=== PATIENT | female | born 1985 | race Caucasian/White ===

== ENCOUNTER 2018-08-11 10:00 | Day surgery (SDC) | payer OTHER ==
[~2018-08-11 10:00] MED LIST: MARCAINE 0.5% INFILTRATI ONE
[2018-08-11] MEDS ORDERED: LACTATED RINGERS 1,000 ML ONE (11:55)
[2018-08-11] MEDS ORDERED: LACTATED RINGERS 1,000 ML IV SCH (12:00)
[2018-08-11] MEDS ORDERED: DIPRIVAN 10 MG/ML IV ONE (12:14)
[2018-08-11] MEDS ORDERED: XYLOCAINE MPF 2% ONE (12:14)
[2018-08-11] MEDS ORDERED: ZEMURON IV ONE (12:14)
[2018-08-11] MEDS ORDERED: DILAUDID ONE (12:14)
[2018-08-11] MEDS ORDERED: VERSED ONE (12:28)
[2018-08-11] MEDS ORDERED: ROBINUL ONE ×2 (13:03→13:14)
[2018-08-11] MEDS ORDERED: BLOXIVERZ ONE ×2 (13:03→13:14)
[2018-08-11] MEDS ORDERED: NACL 0.9% IR ONE ×2 (13:20)
[2018-08-11] MEDS ORDERED: MARCAINE 0.5% INFILTRATI ONE (13:38)
[2018-08-11] MEDS ORDERED: ZOFRAN IV PRN (14:09)
[2018-08-11] MEDS ORDERED: DEMEROL IV PRN (14:09)
[2018-08-11] MEDS ORDERED: DILAUDID IV PRN (14:09)
[2018-08-11] MEDS ORDERED: PERCOCET 5/325 PO ONE (14:10)
--- NOTE | 2018-08-11 15:00 | Anesthesia Consultation ---
Anesthesia Consult and Med Hx Date of service: 08/11/18 - Airway Anesthetic Teeth Evaluation: Good ROM Head & Neck: Adequate Mental/Hyoid Distance: Adequate Mallampati Class: Class II Intubation Access Assessment: Probably Good - Pulmonary Exam CTA: Yes - Cardiac Exam Cardiac Exam: RRR - Pre-Operative Health Status ASA Pre-Surgery Classification: ASA2 Proposed Anesthetic Plan: General (GERD mild) - Pulmonary Hx Asthma: No COPD: No Hx Pneumonia: No - Cardiovascular System Hx Hypertension: No - Central Nervous System Hx Seizures: No Hx Psychiatric Problems: No - Endocrine Hx Renal Disease: No Hx End Stage Renal Disease: No Hx Hypothyroidism: No Hx Hyperthyroidism: No - Hematic Hx Anemia: No Hx Sickle Cell Disease: No - Other Systems Hx Alcohol Use: Yes Hx Cancer: No
--- NOTE | 2018-08-11 15:00 | Anesthesia Day of Surgery ---
Anesthesia Day of Surgery - Day of Surgery Patient Examined: Yes Patient H&P Reviewed: Yes Patient is NPO: Yes
[2018-08-11 15:46] VITALS: BP 113/63
--- NOTE | 2018-08-11 17:27 | Post Anesthesia Evaluation ---
- Post Anesthesia Evaluation Patient Participated: Yes Airway Patent: Yes Stable Respiratory Function: Yes Nausea/Vomiting: No Temp > 96.8F: Yes Pain Manageable: Yes Adequeate Hydration: Yes Anesthesia Complications: No
--- NOTE | 2018-08-11 19:12 | Operative Report ---
Operative Report Operative Report: Preoperative diagnosis: Multiparity, desires permanent sterilization. Postoperative diagnosis: Same as preoperative diagnosis. Procedure: Laparoscopic tubal ligation. Surgeon: Dr. Bhandari Cigarette Book Maker: none Anesthesia: general EBL: negligible IVF: RL 1 liter Complications: none Intraoperative findings: Normal uterus, fallopian tubes and ovaries bilaterally. Procedure details: Risks, benefits, and alternatives of the procedure were discussed in detail with the patient which included but not limited to risk of infection, hemorrhage requiring blood transfusion, injury to the bowel or bladder and blood vessels, failure of the tubal ligation to prevent which can result in unwanted pregnancies in the future. The patient expressed understanding, her questions were answered, and she gave informed consent. The patient was taken to the operating room with an IV fluid using Ringer's lactate. In the operating room, she was placed in a dorsal supine position and given general anesthesia. She was then placed on the stirrups in a dorsal lithotomy position. The perineum, vagina, cervix, and abdomen were washed and she was prepared and draped in usual sterile fashion. A bivalve speculum was placed in the vagina and the anterior lip of the cervix was grasped with a single-tooth tenaculum. A HUMI uterine manipulator was advanced into the uterine cavity to provide a means of manipulating the uterus and the procedure. The speculum and tenaculum were then removed. Attention was then turned to the patient's abdomen where a 5 mm skin incision was made in the infraumbilical fold. The Veress needle was introduced into the peritoneal cavity while tenting the abdominal wall. Intraperitoneal placement was confirmed by using a water-filled syringe and by noticing a drop in the intra-abdominal pressure with CO2 gas insufflation. The trocar and sleeves were then advanced without difficulty into the abdomen where intraperitoneal placement was confirmed using laparoscope. Pneumoperitoneum was achieved with 3.5 L of CO2 gas. A second 5 mm skin incision was made in the left lower quadrant and a 5 mm trocar and sleeves were then advanced into the abdominal cavity under direct visualization with the laparoscope. A quick survey of the anatomy revealed a normal uterus, fallopian tubes, and ovaries bilaterally. The left fallopian tube was grasped with bipolar forceps, cauterized at 2 locations, and transected . A similar procedure was done with the right fallopian tube which was cauterized and transected in a similar fashion. Good hemostasis was confirmed. The ports were then opened to release to CO2 gas from the abdomen. The instruments were then removed. The ports were closed with 3.0 vicryl sutures. Steri-Strip and Tegaderm were placed. The HUMI uterine manipulator was then removed from the uterine cavity. The counts of laps, needles, sponges, and instruments were correct 2. The patient tolerated the procedure well. She was awakened from anesthesia and taken to the recovery room in a stable condition.
== END 2018-08-11 16:35 | disposition home or self-care (01) ==
LOC: OR 10:00
PROVIDERS: ATTEND Obstetrics & Gynecology
DX: Z30.2 Encounter for sterilization (principal); G43.909 Migraine, unspecified, not intractable, without status migrainosus; K21.9 Gastro-esophageal reflux disease without esophagitis; E78.00 Pure hypercholesterolemia, unspecified; Z79.899 Other long term (current) drug therapy; Z64.1 Problems related to multiparity; Z72.89 Other problems related to lifestyle
CPT/HCPCS: 58670; 81025; A4217; J1170; J2175; J2250; J2405; J2704; J2710; J7120

== ENCOUNTER 2019-03-05 00:18 | Emergency (ER) | payer SELFPAY ==
[2019-03-05 00:25] VITALS: BP 146/73
[2019-03-05 00:57] LABS: Basophils # (Auto) 0.1 K/mm3 (0.0-0.1); Basophils % (Auto) 0.7 % (0.0-1.8); Eosinophils # (Auto) 0.2 K/mm3 (0.0-0.4); Eosinophils % (Auto) 1.4 % (0.0-4.3); Hematocrit 40.3 % (30.3-42.9); Hemoglobin 13.5 gm/dl (10.1-14.3); Lymphocytes # (Auto) 3.7 K/mm3 (1.2-5.4); Lymphocytes % (Auto) 33.1 % (13.4-35.0); Mean Corpuscular HGB Conc 34 % (30-34); Mean Corpuscular Volume 87 fl (79-97); Monocytes # (Auto) 0.7 K/mm3 (0.0-0.8); Monocytes % (Auto) 6.6 % (0.0-7.3); Platelet Count 383 K/mm3 (140-440); Red Blood Count 4.63 M/mm3 (3.65-5.03); Red Cell Distribution Width 14.2 % (13.2-15.2)
[2019-03-05 01:10] LABS: Alanine Aminotransferase 17 units/L (7-56); Albumin 4.3 g/dL (3.9-5); BUN/Creatinine Ratio 23; Blood Urea Nitrogen 16 mg/dL (7-17); Calcium 9.3 mg/dL (8.4-10.2); Hemolysis Index 13
[2019-03-05] MEDS ORDERED: ZOFRAN IV ONE ×2 (03:22→06:17)
[2019-03-05] MEDS ORDERED: MORPHINE IV ONE (03:22)
[2019-03-05] MEDS ORDERED: NACL 0.9% 1000 ML 1,000 ML IV ONE (03:22)
--- NOTE | 2019-03-05 03:54 | Emergency Department Report ---
ED Abdominal Pain HPI - General Chief Complaint: Abdominal Pain Stated Complaint: ABD PAIN AND LEG PAIN Time Seen by Provider: 03/05/19 03:25 Source: patient Mode of arrival: Ambulatory Limitations: No Limitations - History of Present Illness Initial Comments: Patient is a A0 33-year-old female with past medical history of GERD and migraine headaches and who presents to the ED recombinant of acute onset persistent severe right lower quadrant pain for the last 3 days. Patient states that she's had this pain intermittently for over 8 months and she has never been evaluated for it. Patient states that the patient usually gets worse whenever she has her menstrual cycle which she is currently on. Patient states that the pain is intermittent and radiates to her right inguinal area as sharp stinging pain. Patient states that she is currently taking an antibiotic which she could not remember, for a recently diagnosed acute urinary tract infection. Patient denies fever, chills, nausea, vomiting, diarrhea, dysuria, urinary frequency and urgency, vaginal discharge, dyspareunia, low back pain, chest pain, shortness of breath, traumatic injury, heavy lifting or numbness and tingling of lower extremities bilaterally. MD Complaint: abdominal pain, other (suprapubic ; nausea and vomiting) -: Sudden, days(s) (3) Location: RLQ, suprapubic Radiation: RLQ, suprapubic Migration to: no migration Severity: severe Severity scale (0 -10): 8 Quality: cramping, aching, sharp Consistency: constant Improves With: nothing Worsens With: nothing Associated Symptoms: denies other symptoms, nausea. denies: diarrhea, fever, chills, hematochezia, melena, anorexia, syncope Treatments Prior to Arrival: NSAIDs - Related Data LMP (females 10-50): 3 weeks Previous Rx's Medication Instructions Recorded Last Taken Type Butalb/Acetamin/Caff 50-325-40 1 tab PO Q8HR PRN #30 tablet 02/28/15 Unknown Rx [Fioricet] SUMAtriptan succinate [SUMAtriptan 100 mg PO DAILY PRN #9 tablet 02/28/15 Unknown Rx Succinate] Topiramate [Topamax] 50 mg PO BID #120 tablet 02/28/15 08/10/18 17:00 Rx Acetaminophen/Codeine [Tylenol 1 tab PO Q6H PRN #15 tab 03/05/19 Unknown Rx /Codeine # 3 tab] Doxycycline Hyclate [Doxycycline 100 mg PO Q12HR #20 tab 03/05/19 Unknown Rx Hyclate TAB] Ketorolac [Toradol] 10 mg PO Q6H PRN #20 tablet 03/05/19 Unknown Rx Ondansetron [Zofran Odt] 4 mg PO Q6HR PRN #20 tab.rapdis 03/05/19 Unknown Rx metroNIDAZOLE [Flagyl] 500 mg PO Q12HR #20 tab 03/05/19 Unknown Rx Allergies Allergy/AdvReac Type Severity Reaction Status Date / Time No Known Allergies Allergy Verified 08/08/18 09:05 ED Review of Systems ROS: Stated complaint: ABD PAIN AND LEG PAIN Other details as noted in HPI Constitutional: denies: chills, fever Eyes: denies: eye pain, eye discharge, vision change ENT: denies: ear pain, throat pain Respiratory: denies: cough, shortness of breath, wheezing Cardiovascular: denies: chest pain, palpitations Endocrine: no symptoms reported Gastrointestinal: abdominal pain (RLQ radiates to the right inguinal area), nausea. denies: vomiting, diarrhea, hematemesis Genitourinary: denies: urgency, dysuria, frequency, hematuria, discharge, abnormal menses, dyspareunia Musculoskeletal: denies: back pain, joint swelling, arthralgia Skin: denies: rash, lesions Neurological: denies: headache, weakness, paresthesias Psychiatric: denies: anxiety, depression Hematological/Lymphatic: denies: easy bleeding, easy bruising ED Past Medical Hx - Past Medical History Previous Medical History?: Yes Hx Hypertension: No Hx Congestive Heart Failure: No Hx Diabetes: No Hx Deep Vein Thrombosis: No Hx GERD: Yes Hx Renal Disease: No Hx Sickle Cell Disease: No Hx Headaches / Migraines: Yes (Migraines) Hx Seizures: No Hx Asthma: No Hx COPD: No Hx HIV: No - Surgical History Past Surgical History?: No - Social History Smoking Status: Never Smoker - Medications Home Medications: Home Medications Medication Instructions Recorded Confirmed Last Taken Type Butalb/Acetamin/Caff 50-325-40 1 tab PO Q8HR PRN #30 tablet 02/28/15 08/08/18 Unknown Rx [Fioricet] SUMAtriptan succinate [SUMAtriptan 100 mg PO DAILY PRN #9 tablet 02/28/15 08/08/18 Unknown Rx Succinate] Topiramate [Topamax] 50 mg PO BID #120 tablet 02/28/15 08/11/18 08/10/18 17:00 Rx Acetaminophen/Codeine [Tylenol 1 tab PO Q6H PRN #15 tab 03/05/19 Unknown Rx /Codeine # 3 tab] Doxycycline Hyclate [Doxycycline 100 mg PO Q12HR #20 tab 03/05/19 Unknown Rx Hyclate TAB] Ketorolac [Toradol] 10 mg PO Q6H PRN #20 tablet 03/05/19 Unknown Rx Ondansetron [Zofran Odt] 4 mg PO Q6HR PRN #20 tab.rapdis 03/05/19 Unknown Rx metroNIDAZOLE [Flagyl] 500 mg PO Q12HR #20 tab 03/05/19 Unknown Rx ED Physical Exam - General Limitations: No Limitations General appearance: alert, in no apparent distress - Head Head exam: Present: atraumatic, normocephalic, normal inspection - Eye Eye exam: Present: normal appearance, PERRL, EOMI Pupils: Present: normal accommodation - ENT ENT exam: Present: normal exam, normal orophraynx, mucous membranes moist, TM's normal bilaterally, normal external ear exam - Neck Neck exam: Present: normal inspection, full ROM. Absent: tenderness, lymphadenopathy - Respiratory Respiratory exam: Present: normal lung sounds bilaterally. Absent: respiratory distress, wheezes, rales, rhonchi, chest wall tenderness - Cardiovascular Cardiovascular Exam: Present: regular rate, normal rhythm, normal heart sounds. Absent: systolic murmur, diastolic murmur, rubs, gallop - GI/Abdominal GI/Abdominal exam: Present: soft, tenderness (suprapubic, RLQ area), guarding, rebound, normal bowel sounds. Absent: hyperactive bowel sounds, pulsatile mass, hernia - Rectal Rectal exam: Present: deferred - External exam: Present: normal external exam Speculum exam: Present: vaginal bleeding Bi-manual exam: Present: cervical motion tendernes, adnexal tenderness, uterine tenderness, other (Female RN Citizen Of [place] speaking Pattern present during the pelvic exam) - Extremities Exam Extremities exam: Present: normal inspection, full ROM, normal capillary refill - Back Exam Back exam: Present: normal inspection, full ROM. Absent: tenderness, CVA tenderness (R), CVA tenderness (L), muscle spasm, paraspinal tenderness, vertebral tenderness - Neurological Exam Neurological exam: Present: alert, oriented X3, CN II-XII intact, normal gait, reflexes normal - Psychiatric Psychiatric exam: Present: normal affect, normal mood - Skin Skin exam: Present: warm, dry, intact, normal color. Absent: rash ED Course Vital Signs 03/05/19 03/05/19 00:23 04:12 Temperature 97.3 F L Pulse Rate 88 Respiratory 18 16 Rate Blood Pressure 146/73 - Reevaluation(s) Reevaluation #1: 03/05/19 03:53 This is a 33-year-old female who presented to the ED with acute onset severe right lower quadrant abdominal pain that radiates to the right inguinal area with nausea for 3 days. In the ED, patient is alert and oriented 3 but appears to be in pain, and is hemodynamically stable. Lab test results were reviewed and significant for mild leukocytoses of 11,100. The rest of the lab test results are unremarkable. Abdomen pelvis CT scan with contrast was ordered and the patient was treated for pain and nausea and also given normal saline 1 L IV bolus. On reevaluation, patient's pain is well controlled with medications, and patient is slept most of the time during ED stay. Abdomen pelvis CT scan with contrast shows a normal appendix and terminal ileum. Small follicular cysts are seen in both ovaries without significant mass or large cyst. There is no free pelvic fluid. No pelvic or inguinal adenopathy. No hernia or bowel obstruction. No significant skeletal abnormality. The pelvic ultrasound exam shows uterus that measures 8.4 x 4 by 5.3 cm and appears normal. Endometrial stripe is normal at 6 mm. Neither ovary is visualized. No pelvic masses or fluid. Pelvic exam chaperoned by a Citizen [place] speaking female RN was performed and it shows moderate blood in the vaginal vault with significant cervical motion tenderness, uterine tenderness and severe bilateral adnexal tenderness. Patient was empirically treated in the ED for acute PID with Rocephin and azithromycin. Patient was discharged home on pain medications, antiemetics and multiple antibiotics for PID. Patient is advised to follow-up with her [facility] physician in 7-10 days for reevaluation or return to the ED immediately if symptoms get worse. 03/05/19 06:27 03/05/19 06:28 ED Medical Decision Making - Lab Data Result diagrams: 03/05/19 00:26 03/05/19 00:27 - Radiology Data Radiology results: report reviewed, image reviewed Findings [address] [address] Ultrasound Report Signed Patient: MERARY HERNANDEZ MR#: [id number] : 1985 Acct:[id number] Age/Sex: 33 / F ADM Date: 03/05/19 Loc: ED Attending Dr: Ordering Physician: KENJI SANCHEZ Date of Service: 03/05/19 Procedure(s): US pelvic complete Accession Number(s): [id number] cc: KENJI SANCHEZ Transabdominal pelvic ultrasound INDICATION: Right lower quadrant pain FINDINGS: Uterus measures 8.4 x 4 by 5.3 cm and appears normal. Endometrial stripe is normal at 6 mm. Neither ovary is visualized. No pelvic masses or fluid. Signer Name: Theron Mireles MD Signed: 03/05/2019 5:23 AM Workstation Name: [id number] Transcribed By: CARMELITA Dictated By: Theron Mireles MD Electronically Authenticated By: Theron Mireles MD Signed Date/Time: 03/05/19 [address] [address] Cat Scan Report Signed Patient: MREARY HERNANDEZ MR#: [id number] : 1985 Acct:[id number] Age/Sex: 33 / F ADM Date: 03/05/19 Loc: ED Attending Dr: Ordering Physician: KENJI SANCHEZ Date of Service: 03/05/19 Procedure(s): CT abdomen pelvis w con Accession Number(s): [id number] cc: KENJI SANCHEZ CT of the abdomen and pelvis with contrast The patient received 100 cc of Omnipaque 300 for intravenous contrast INDICATION: Right lower quadrant pain COMPARISON: None FINDINGS: Lung bases are clear. Liver, spleen, pancreas, adrenal glands and kidneys show no abnormalities. No definite gallbladder or biliary tree abnormality. No fluid or adenopathy in the upper abdomen. CT of the pelvis shows a normal appendix and terminal ileum. Small follicular cysts are seen in both ovaries without significant mass or large cyst. There is no free pelvic fluid. No pelvic or i nguinal adenopathy. No hernia or bowel obstruction. No significant skeletal abnormality. IMPRESSION: Negative study. No appendicitis or significant ovarian cyst. Automated exposure control was utilized to diminish radiation dose. Signer Name: Theron Mireles MD Signed: 03/05/2019 5:05 AM Workstation Name: [email or web address] Transcribed By: Dictated By: Theron Mireles MD Electronically Authenticated By: Theron Mireles MD Signed Date/Time: 03/05/19 0504 - Medical Decision Making This is a 33-year-old female who presented to the ED with acute onset severe right lower quadrant abdominal pain that radiates to the right inguinal area with nausea for 3 days. In the ED, patient is alert and oriented 3 but appears to be in pain, and is hemodynamically stable. Lab test results were reviewed and significant for mild leukocytoses of 11,100. The rest of the lab test results are unremarkable. Abdomen pelvis CT scan with contrast was ordered and the patient was treated for pain and nausea and also given normal saline 1 L IV bolus. On reevaluation, patient's pain is well controlled with medications, and patient is slept most of the time during ED stay. Abdomen pelvis CT scan with contrast shows a normal appendix and terminal ileum. Small follicular cysts are seen in both ovaries without significant mass or large cyst. There is no free pelvic fluid. No pelvic or inguinal adenopathy. No hernia or bowel obstruction. No significant skeletal abnormality. The pelvic ultrasound exam shows uterus that measures 8.4 x 4 by 5.3 cm and appears normal. Endometrial stripe is normal at 6 mm. Neither ovary is visualized. No pelvic masses or fluid. Pelvic exam chaperoned by a Citizen [place] speaking female RN was performed and it shows moderate blood in the vaginal vault with significant cervical motion tenderness, uterine tenderness and severe bilateral adnexal tenderness. Patient was empirically treated in the ED for acute PID with Rocephin and azithromycin. Patient was discharged home on pain medications, antiemetics and multiple antibiotics for PID. Patient is advised to follow-up with her [facility] physician in 7-10 days for reevaluation or return to the ED immediately if symptoms get worse. - Differential Diagnosis Appendicitis; PID, hernia; Ectopic ; Ovarian cyst/ abscess Critical care attestation.: If time is entered above; I have spent that time in minutes in the direct care of this critically ill patient, excluding procedure time. ED Disposition Clinical Impression: Acute abdominal pain in right lower quadrant, Acute pelvic inflammatory disease Disposition: TO HOME OR SELFCARE Is pt being admited?: No Does the pt Need Aspirin: No Condition: Stable Instructions: Abdominal Pain (ED) Additional Instructions: Take medications with food, drink plenty of fluids and follow up with your primary care physician or [facility] physician and 7-10 days for reevaluation or return to the ED immediately if symptoms get worse. Prescriptions: Doxycycline Hyclate [Doxycycline Hyclate TAB] 100 mg PO Q12HR #20 tab metroNIDAZOLE [Flagyl] 500 mg PO Q12HR #20 tab Ketorolac [Toradol] 10 mg PO Q6H PRN #20 tablet PRN Reason: Pain Acetaminophen/Codeine [Tylenol /Codeine # 3 tab] 1 tab PO Q6H PRN #15 tab PRN Reason: Pain , Severe (7-10) Ondansetron [Zofran Odt] 4 mg PO Q6HR PRN #20 tab.rapdis PRN Reason: Nausea Referrals: [facility] [Outside] - 3-5 Days Time of Disposition: 06:32 Print Language: PORTUGUESE
[2019-03-05 04:19] LABS: Bacteria,Urine 1+ /HPF (Negative); Bilirubin,Urine NEG (Negative); Blood,Urine MOD (Negative); Color,Urine Straw (Yellow); Protein,Urine <15 mg/dL mg/dL (Negative); Urobilinogen,Urine < 2.0 mg/dL (<2.0); WBC,Urine < 1.0 /HPF (0.0-6.0)
[2019-03-05 04:24] LABS: RBC,Urine < 1.0 /HPF (0.0-6.0)
--- NOTE | 2019-03-05 05:10 | Cat Scan Report ---
CT of the abdomen and pelvis with contrast The patient received 100 cc of Omnipaque 300 for intravenous contrast INDICATION: Right lower quadrant pain COMPARISON: None FINDINGS: Lung bases are clear. Liver, spleen, pancreas, adrenal glands and kidneys show no abnormali ties. No definite gallbladder or biliary tree abnormality. No fluid or adenopathy in the upper abdome n. CT of the pelvis shows a normal appendix and terminal ileum. Small follicular cysts are seen in both ovaries without significant mass or large cyst. There is no free pelvic fluid. No pelvic or inguinal adenopathy. No hernia or bowel obstruction. No significant skeletal abnormality. IMPRESSION: Negative study. No appendicitis or significant ovarian cyst. Automated exposure control was utilized to diminish radiation dose. Signer Name: Theron Mireles MD Signed: 03/05/2019 5:05 AM Workstation Name: [id number]
--- NOTE | 2019-03-05 05:27 | Ultrasound Report ---
Transabdominal pelvic ultrasound INDICATION: Right lower quadrant pain FINDINGS: Uterus measures 8.4 x 4 by 5.3 cm and appears normal. Endometrial stripe is normal at 6 mm. Neither ovary is visualized. No pelvic masses or fluid. Signer Name: Theron Mireles MD Signed: 03/05/2019 5:23 AM Workstation Name: [id number]
[2019-03-05] MEDS ORDERED: DILAUDID IV ONE (06:16)
[2019-03-05] MEDS ORDERED: ZITHROMAX PO ONE (06:16)
[2019-03-05] MEDS ORDERED: ROCEPHIN/NS 1 GM/50 ML 1 GM/50 ML BAG IV ONE (06:16)
[2019-03-05] MEDS ORDERED: TORADOL IV ONE (06:16)
== END 2019-03-05 07:13 | disposition home or self-care (01) ==
LOC: ED 00:18
DX: N73.9 Female pelvic inflammatory disease, unspecified (principal); G43.909 Migraine, unspecified, not intractable, without status migrainosus; K21.9 Gastro-esophageal reflux disease without esophagitis; R11.2 Nausea with vomiting, unspecified; Z79.899 Other long term (current) drug therapy
CPT/HCPCS: 36415; 74177; 76856; 80053; 81001; 83690; 84703; 85025; 96361; 96365; 96375; 96376; 99284; J0696; J1170; J1885; J2270; J2405; J7030; Q9967